=== PATIENT | male | born 1990 | race Caucasian/White ===

== ENCOUNTER 2017-02-08 07:46 | Emergency (ER) | payer MEDICAID ==
[2017-02-08 07:52] VITALS: BP 158/88
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
== END 2017-02-08 09:37 | disposition home or self-care (01) ==
LOC: ER 07:46
DX: T63.311A Toxic effect of venom of black widow spider, accidental (unintentional), initial encounter (principal); Y92.003 Bedroom of unspecified non-institutional (private) residence as the place of occurrence of the external cause
CPT/HCPCS: 99282

== ENCOUNTER 2017-02-08 20:13 | Emergency (ER) | payer MEDICAID ==
[2017-02-08 20:48] VITALS: BP 163/84
[2017-02-08] MEDS ORDERED: HYDROCODONE/ACETAMINOPHEN 5-325 MG 6 TAB/DSPK PO PRN (21:59)
--- NOTE | 2017-02-08 22:13 | ER Document Report ---
HPI - HPI Patient complains to provider of: Spider bite, muscle spasms Pain Level: 5 Context: Patient is a 26-year-old male that comes emergency department for chief complaint of muscle spasms. He states that he was diagnosed with black spider bite when he was seen earlier today, he states that he was given Ativan, Benadryl, and he has been taking ibuprofen, he states that he took the medications but they did not help with the pain and he did not like how they made him feel. He states that he was having bad muscle spasm along his right deltoid area and the left under arm although he states that shortly after arrival to the emergency department all his symptoms have resolved. He states that yesterday he was carrying wood crates, he woke up in the bed after he felt a sharp pain, he states that he found a spider under his left arm and capture despite her, bring it to the emergency department, states he was told he was bitten by a black . Past Medical History - General Information source: Patient - Social History Smoking Status: Current Every Day Smoker Chew tobacco use (# tins/day): No Frequency of alcohol use: None Drug Abuse: None Lives with: Family Family History: Hypertension Patient has suicidal ideation: No Patient has homicidal ideation: No Renal/ Medical History: Reports: Hx Peritoneal Dialysis Musculoskeltal Medical History: Reports Hx Musculoskeletal Trauma Past Surgical History: Reports: Hx Orthopedic Surgery - left wrist - Immunizations Immunizations up to date: Yes Hx Diphtheria, Pertussis, Tetanus Vaccination: Yes Vertical Provider Document - CONSTITUTIONAL General Appearance: WD/WN, No Apparent Distress - INFECTION CONTROL TRAVEL OUTSIDE OF THE [place] IN LAST 30 DAYS: No - HEENT HEENT: Atraumatic, Normal ENT Exam, Normocephalic - NECK Neck: Normal Inspection - RESPIRATORY Respiratory: Breath Sounds Normal, No Respiratory Distress O2 Sat by Pulse Oximetry: 99 - CARDIOVASCULAR Cardiovascular: Regular Rate, Regular Rhythm - GI/ABDOMEN Gastrointestinal: Abdomen Soft, Abdomen Non-Tender - BACK Back: Normal Inspection - MUSCULOSKELETAL/EXTREMETIES Musculoskeletal/Extremeties: MAEW, FROM, Non-Tender - NEURO Level of Consciousness: Awake, Alert, Appropriate - DERM Integumentary: Warm, Dry, No Rash Course - Re-evaluation Re-evalutation: Poison control has already been contacted in regards to the patient earlier today. Patient was discharged earlier after being monitored without any concerning symptom development. A large time has passed since then, over 12 hours, patient is asymptomatic now. Normal neurological exam, soft abdomen, no vomiting, no neurological symptoms. Patient will be discharged with monitoring recommendations in regards to the bites, follow-up instructions, return precautions. Patient states understanding and agreement. - Vital Signs Vital signs: Temp Pulse Resp BP Pulse Ox 97.9 F 89 16 163/84 H 99 02/08/17 20:37 02/08/17 20:37 02/08/17 20:37 02/08/17 20:37 02/08/17 20:37 Discharge - Discharge Clinical Impression: Spider bite Qualifiers: Encounter type: initial encounter Injury intent: accidental or unintentional Qualified Code(s): T63.301A - Toxic effect of unspecified spider venom, accidental (unintentional), initial encounter Condition: Stable Disposition: HOME, SELF-CARE Additional Instructions: Return to the emergency department for any concerning symptoms including developing or spreading redness, fever, vomiting, or any other concerning symptoms. Forms: Return to Work, Elevated Blood Pressure
== END 2017-02-08 22:18 | disposition home or self-care (01) ==
LOC: ER 20:13
DX: T63.311A Toxic effect of venom of black widow spider, accidental (unintentional), initial encounter (principal); M62.838 Other muscle spasm; Z79.899 Other long term (current) drug therapy; F17.200 Nicotine dependence, unspecified, uncomplicated
CPT/HCPCS: 99283

== ENCOUNTER 2018-03-09 18:51 | Emergency (ER) | payer OTHER, MEDICAID ==
[2018-03-09] MEDS ORDERED: IBUPROFEN 600 MG TABLET PO ONE (20:51)
--- NOTE | 2018-03-09 20:52 | ER Document Report ---
ED Medical Screen (RME) - General Chief Complaint: Ankle Injury Stated Complaint: ANKLE INJURY Time Seen by Provider: 03/09/18 20:50 Mode of Arrival: Ambulatory Information source: Patient Notes: Patient is a 27-year-old male who presents with chief complaint of left ankle pain. Patient reports he rolled his ankle at work. Exam: Extensive ecchymosis and swelling noted to patient's left lateral ankle. I have greeted and performed a rapid initial assessment of this patient. A comprehensive ED assessment and evaluation of the patient, analysis of test results and completion of the medical decision making process will be conducted by additional ED providers. Dictation of this chart was performed using voice recognition software; therefore, there may be some unintended grammatical er rors. TRAVEL OUTSIDE OF THE [place] IN LAST 30 DAYS: No - Related Data Allergies/Adverse Reactions: Penicillins Allergy (Verified 03/09/18 18:54) Past Medical History - Social History Chew tobacco use (# tins/day): No Frequency of alcohol use: Occasional Drug Abuse: None Renal/ Medical History: Denies: Hx Peritoneal Dialysis Musculoskeltal Medical History: Reports Hx Musculoskeletal Trauma Past Surgical History: Reports: Hx Orthopedic Surgery - left wrist, L leg - Immunizations Immunizations up to date: Yes Hx Diphtheria, Pertussis, Tetanus Vaccination: Yes Physical Exam - Vital signs Vitals: Temp Pulse Resp BP Pulse Ox 98.8 F 89 18 156/91 H 99 03/09/18 18:58 03/09/18 18:58 03/09/18 18:58 03/09/18 18:58 03/09/18 18:58 Course - Vital Signs Vital signs: Temp Pulse Resp BP Pulse Ox 98.8 F 89 18 156/91 H 99 03/09/18 18:58 03/09/18 18:58 03/09/18 18:58 03/09/18 18:58 03/09/18 18:58
--- NOTE | 2018-03-09 21:43 | RADIOLOGY REPORT (SQ) ---
EXAM DESCRIPTION: XR ANKLE 3 OR MORE VIEWS COMPLETED DATE/TME: 03/09/2018 20:51 CLINICAL HISTORY: 27 years, Male, left ankle pain COMPARISON: None. NUMBER OF VIEWS: Three TECHNIQUE: AP, oblique and lateral views of the left ankle LIMITATIONS: None. FINDINGS: No acute fractures. Tibiotalar joint is congruent. Diffuse soft tissue swelling about the ankle. IMPRESSION: Soft tissue swelling. No acute fractures. copyright 2010 [employer]- All Rights Reserved
[2018-03-09] MEDS ORDERED: ACETAMINOPHEN 325 MG TABLET PO ONE (21:48)
--- NOTE | 2018-03-09 21:59 | ER Document Report ---
HPI - HPI Patient complains to provider of: L ankle injury Time Seen by Provider: 03/09/18 20:50 Context: 27 male presents with acute left ankle injury after stepping out of his work truck and rolling his ankle while at work yesterday. He said he works through the day and actually came to the emergency department last night but waited 3- 1/2 hours but had to go home to go to sleep and he returned today. Patient arrives stating he is in acute pain, has swelling, has bruising. Patient denies fevers. Patient is able to bear weight on it as he worked the rest of the day yesterday and work today. He states that soon as he unlaced his work boot there was intense throbbing. Patient has no other complaints. - MUSCULOSKELETAL Musculoskeletal: REPORTS: Extremity pain - L ankle Past Medical History - General Information source: Patient - Social History Smoking Status: Current Every Day Smoker Chew tobacco use (# tins/day): No Frequency of alcohol use: Occasional Drug Abuse: None Family History: Hypertension Patient has suicidal ideation: No Patient has homicidal ideation: No Renal/ Medical History: Denies: Hx Peritoneal Dialysis Musculoskeletal Medical History: Reports Hx Musculoskeletal Trauma Past Surgical History: Reports: Hx Orthopedic Surgery - left wrist, L leg - Immunizations Immunizations up to date: Yes Hx Diphtheria, Pertussis, Tetanus Vaccination: Yes Vertical Provider Document - CONSTITUTIONAL Agree With Documented VS: Yes - INFECTION CONTROL TRAVEL OUTSIDE OF THE [place] IN LAST 30 DAYS: No - HEENT HEENT: Atraumatic, Normocephalic - NECK Neck: Normal Inspection - RESPIRATORY Respiratory: No Respiratory Distress - MUSCULOSKELETAL/EXTREMETIES Musculoskeletal/Extremeties: Tender, Edema - Gross edema of the left ankle, nonpitting, acute tenderness to palpation, Eccymosis Notes: Left ankle along the lateral malleolus and inferior medial malleolus - NEURO Level of Consciousness: Awake, Alert, Appropriate Motor/Sensory: No Motor Deficit, No Sensory Deficit - DERM Integumentary: Warm, Dry Course - Re-evaluation Re-evalutation: 03/09/18 22:03 Well-appearing 27 male presents to the emergency department with a left ankle injury sustained at work. X-ray showed no evidence of fracture but diffuse soft tissue swelling. Distal neurovascular exam normal. Patient has range of motion. Patient has acute tenderness to palpation over the anterior talofibular ligament, the lateral malleolus, and along the fifth metatarsal. Plan is to put an Gregory wrap on with a stirrup splint and give the patient crutches. Patient is stable for discharge with instructions. - Vital Signs Vital signs: Temp Pulse Resp BP Pulse Ox 98.8 F 89 18 156/91 H 99 03/09/18 18:58 03/09/18 18:58 03/09/18 18:58 03/09/18 18:58 03/09/18 18:58 Discharge - Discharge Clinical Impression: Left ankle injury Qualifiers: Encounter type: initial encounter Qualified Code(s): S99.912A - Unspecified injury of left ankle, initial encounter Condition: Good Disposition: HOME, SELF-CARE Instructions: Gregory Wrap ([facility]), Use of Crutches ([facility]), Ice & Elevation ([facility]), Sprained Ankle ([facility]), Soft Ankle Splint ([facility]) Additional Instructions: You are seen in the emergency department this evening for a sprained ankle. X- ray shows that your foot or ankle was not broken. We have still given you the information for Dr. Wan the orthopedist who is on-call. If your symptoms do not improve over the next few days please give him a call as you could potentially have suffered an injury of your ligaments or tendons that could require intervention. If you notice that your toes start to turn blue like you are not getting circulation to them, develop high fever, or your symptoms worsen please return to the emergency department or call Dr. Wan. Forms: Return to Work Referrals: KIMBERLEY WAN MD [ACTIVE STAFF] - Follow up as needed
[2018-03-09 22:04] VITALS: BP 137/83
== END 2018-03-09 22:05 | disposition home or self-care (01) ==
LOC: ER 18:51
DX: S90.02XA Contusion of left ankle, initial encounter (principal); X50.0XXA Overexertion from strenuous movement or load, initial encounter; Y93.89 Activity, other specified; Y99.0 Civilian activity done for income or pay; F17.200 Nicotine dependence, unspecified, uncomplicated
CPT/HCPCS: 99283; 73610; L1902